=== PATIENT | female | born 1960 | race Caucasian/White ===

== ENCOUNTER → 2017-10-26 | Outpatient (CLI) | payer BC | END | disposition home or self-care (01) | LOC: MAMMO 10:48 | DX: Z12.31 Encounter for screening mammogram for malignant neoplasm of breast (principal) | CPT/HCPCS: 77067 ==

== ENCOUNTER → 2018-05-18 | Outpatient (CLI) | payer SELFPAY ==
[2016-01-13 10:00] VITALS: BP 132/77
[~2018-05-18] MED LIST: DULO30CA43 PO; MELO7.5T29 PO; METO-239 PO; OMEP40CA2 PO; ZOLP5TAB PO
--- NOTE | 2018-05-18 12:18 | KCIC ---
Coronary artery calcium score dated May 18, 2018. No comparison available. Clinical Indication: Calcium screening. Hypertension. Family history of myocardial infarction. New diagnosis of hyperlipidemia. Technical factors: High resolution, computed tomography of the heart was performed with ECG gating and suspended respiration. No contrast material was administered. Post processing was performed on the 3-D computer workstation using diastolic phase images to measure the amount of coronary vascular calcium. Scoring was performed using the Agatston Method. PQRS compliance Statement One or more of the following individualized dose reduction techniques were utilized for this study: 1. Automated exposure control 2. Adjustment of the mA and/or kV according to patient size 3. Use of iterative reconstruction technique Results: Thorax: There is a small 2 mm subpleural lung nodule within the lateral aspect of the right upper lobe and smaller 1 mm lung nodule seen within the posterior lateral periphery of the posterior segment right upper lobe. These nodules are seen on images 1 and 2 series 5 respectively. No other significant abnormality is identified in the lungs or mediastinum. Note that this CT exam is limited to the heart and adjacent structures. Coronary arteries: Left main coronary artery: 0. Left anterior descending coronary artery: 161.2 Left circumflex coronary artery: 3.8. Right coronary artery: 53.8. Total coronary artery calcium score: 218.7. Conclusions: 1. Coronary atherosclerosis is present, moderate amount. 2. Intermediate risk of cardiovascular event. 3. Small peripheral right upper lobe lung nodules. If the patient is at high risk for malignancy, then a follow-up noncontrast chest CT in 12 months is recommended as per Fleischner guidelines. Electronically signed by: Denny Villalta MD (05/18/2018 12:15 PM) [facility]
== END | disposition home or self-care (01) ==
LOC: KCIC CT 10:48
DX: Z13.6 Encounter for screening for cardiovascular disorders (principal); I25.10 Atherosclerotic heart disease of native coronary artery without angina pectoris; I10 Essential (primary) hypertension; E78.5 Hyperlipidemia, unspecified; E87.6 Hypokalemia; R91.8 Other nonspecific abnormal finding of lung field; Z86.2 Personal history of diseases of the blood and blood-forming organs and certain disorders involving the immune mechanism; Z87.891 Personal history of nicotine dependence; Z85.038 Personal history of other malignant neoplasm of large intestine; Z90.710 Acquired absence of both cervix and uterus; Z82.49 Family history of ischemic heart disease and other diseases of the circulatory system
CPT/HCPCS: 75571

== ENCOUNTER → 2018-06-22 | Outpatient (CLI) | payer BC ==
[2016-01-13 10:00] VITALS: BP 132/77
[~2018-06-22] MED LIST changes: +REGADENOSON 0.4 MG/5 ML DISP.SYRIN. IV ONE
--- NOTE | 2018-06-22 11:09 | RAD ---
MR#: [id number] Date of Study: 06/22/2018 Ordering Physician: LATA SRIVASTAVA, Referring Physician: NAHEED KOHLI Tech: RT Champ (R) (N) APPROVED REPORT Test Type: Pharmacological Stress Nurse/Tech: Jane Cantu R.N. Test Indications: chest tightness, fatigue Cardiac History: Family history, Hypertension Medications: See Electronic Medical Record Medical History: See Electronic Medical Record Resting ECG: NSR Resting Heart Rate: 75 bpm Resting Blood Pressure: 108/66mmHg Pretest Chest Pain: Atypical angina Nurse/Tech Notes S1S2, lungs sound clear. states she has a pressure in middle of chest in low sternam area, not radia tion into either arm. States it has been a constant feeling rated at 4 Consent: The procedure was explained to the patient in lay terms. Informed consent was witnessed. Eyal eout was entered into [employer]. History and Stress Test performed by Jane Cantu R.N. Pharm. Details Pharmacologic stress testing was performed using 0.4mg per 5ml of regadenoson given intravenously ove r 7-10 seconds. Stress Symptoms cramping in abd. POST EXERCISE Reason for Termination: Infusion complete Target HR: 137 Max HR: 109 bpm Max Blood Pressure: 113/62mmHg Blood Pressure response to exercise: Normal blood pressure response during stress. Chest Pain: Yes. no change in pain after injection Arrhythmia: No. ST Change: No. INTERPRETATION Stress EKG Conclusion: Baseline EKG showed sinus rhythm. No ischemic changes at peak stress. No arr hythmias. Imaging Protocol IMAGE PROTOCOL: Rest Tc-99m/stress Tc-99m 1 day Rest: Stress: Viability: Radiopharm.Tc99m KgrfigsfoHf51a Sestamibi Ofjl34fPc 33mCi Duration 13min. 13min. Img Date 06/22/2018 06/22/2018 Inj-Img [id number]. 60min. Rest Admin Site:IV - Left AntecubitalAdministrator:RT Sarah Oakes)(N) Stress Admin Site: IV - Left AntecubitalAdministrator: Dylan Bowers, RT (R)(N) STRESS DATA End Diast. Vol.73.0mlLVEDV index BSA39.0ml End Syst. Vol.15.0mlLVESV index BSA8.0ml Myocardial Xmvp260.0gEject. Jjsyyivs76.0% Stress Scores Regional WT0.00Summed WT0.00 Regional WM0.00Summed WM0.00 Study quality was good. Left Ventricular size was Normal at Rest and Stress. Lung uptake was . Left Ventricular ejection fraction is 79%. The rest and stress images show normal perfusion, normal contraction and thickening. LV Perf. Quant 17 Seg. SSS0.00 17 Seg. SRS0.00 17 Seg. SDS0.00 Stress Defect Extent (% LAD)0.00Rest Defect Extent (% LAD)0.00Rev. Defect Extent (% LAD)0.00 Stress Defect Extent (% LCX) 0.00Rest Defect Extent (% LCX)0.00Rev. Defect Extent (% LCX)0.00 Stress Defect Extent (% RCA)0.00Rest Defect Extent (% RCA)0.00Rev. Defect Extent (% RCA)0.00 Stress Defect Extent (% ABEL)0.00Rest Defect Extent (% ABEL)0.00Rev. Defect Extent (% ABEL)0.00 Conclusion 1. Regadenoson cardioisotope stress test did not show any evidence of ischemia or infarct. 2. Normal left ventricular systolic function with ejection fraction calculated at 79%. 3. Low risk for cardiac events. Signed by : Braulio Fonseca, Electronically Approved : 06/22/2018 11:08:16
== END | disposition home or self-care (01) ==
LOC: NM 07:53
PROVIDERS: ATTEND Internal Medicine Cardiovascular Disease
DX: R07.89 Other chest pain (principal); R53.83 Other fatigue; I10 Essential (primary) hypertension; E78.5 Hyperlipidemia, unspecified; I25.10 Atherosclerotic heart disease of native coronary artery without angina pectoris; Z87.891 Personal history of nicotine dependence; Z85.038 Personal history of other malignant neoplasm of large intestine; Z86.2 Personal history of diseases of the blood and blood-forming organs and certain disorders involving the immune mechanism; Z90.710 Acquired absence of both cervix and uterus; Z82.49 Family history of ischemic heart disease and other diseases of the circulatory system
CPT/HCPCS: 78452; 93017; 96374; 96375; 96376; A9500; J2785

== ENCOUNTER → 2018-11-25 | Outpatient (CLI) | payer BC ==
[2016-01-13 10:00] VITALS: BP 132/77
[~2018-11-25] MED LIST changes: -REGADENOSON 0.4 MG/5 ML DISP.SYRIN. IV ONE
--- NOTE | 2018-11-25 11:49 | RAD ---
DATE: November 25, 2018 EXAM: MAMMO JALYN SCREENING BILATERAL HISTORY: Screening study. COMPARISON: 2014 and 2017. 2-D digital mammographic views of both breasts were performed in the CC and MLO projections. 3-D digital tomosynthesis images of both breasts were performed in the CC and MLO projections and reviewed on a computer workstation. This study was interpreted with the benefit of Computerized Aided Detection (CAD). FINDINGS: Breast Density: HETERO The breast parenchyma is heterogenously dense, which could reduce sensitivity of mammography. Breast parenchyma level C.. There are no dominant suspicious masses, suspicious microcalcifications or evidence of architectural distortion. IMPRESSION: No mammographic indicators for malignancy. BI-RADS CATEGORY: 1 NEGATIVE RECOMMENDED FOLLOW-UP: 12M 12 MONTH FOLLOW-UP PQRS compliance statement: Patient information was entered into a reminder system with a target due date November 26, 2019 for the next mammogram. Mammography is a sensitive method for finding small breast cancers, but it does not detect them all and is not a substitute for careful clinical examination. A negative mammogram does not negate a clinically suspicious finding and should not result in delay in biopsying a clinically suspicious abnormality. "Our facility is accredited by the [employer] Mammography Program." The patient's breast density may affect the ability of mammography to detect breast cancer. There are 4 categories of breast density, A, B, C and D. Breast density A means that most of the breast tissue is replaced with adipose tissue and therefore is not dense. Breast density B means that the breast tissue is mildly dense and scattered. Breast density C means that the breast tissue is heterogeneously dense. Breast density D means that the breast tissue is very dense. Breast densities especially C and D may decrease the sensitivity of mammography to detect breast cancer. Therefore, the patient may benefit from 3-D breast mammography (3D breast tomography) as a part of their screening mammogram. Insurance may or may not pay for this additional imaging. The patient's breast density based on today's mammogram is category C.
== END | disposition home or self-care (01) ==
LOC: MAMMO 10:41
DX: Z12.31 Encounter for screening mammogram for malignant neoplasm of breast (principal)
CPT/HCPCS: 77063; 77067

== ENCOUNTER → 2021-05-14 | Outpatient (CLI) | payer BC ==
[2016-01-13 10:00] VITALS: BP 132/77
[~2021-05-14] MED LIST changes: -DULO30CA43 PO; +DULO30CA44 PO; +REGADENOSON 0.4 MG/5 ML DISP.SYRIN. IV ONE
--- NOTE | 2021-05-14 18:23 | RAD ---
MR#: [id number] Date of Study: 05/14/2021 Ordering Physician: KENNETH RENO, Referring Physician: NAHEED COTTON Tech: SIGRID Meraz ARRT (R) (N) APPROVED REPORT Test Type: Pharmacological Stress Nurse/Tech: RYANN LARA Test Indications: CHEST PAIN Cardiac History: HTN, CP- SEE EMR Medications: SEE EMR Medical History: SEE EMR Resting ECG: SR Resting Heart Rate: 74 bpm Resting Blood Pressure: 119/68mmHg Pretest Chest Pain: No chest pain Nurse/Tech Notes S1,S2, VSS, PT IS WEARING A ZIO MONITOR, LUNGS CTA, DENIED CP OR SOA. Consent: The procedure was explained to the patient in lay terms. Informed consent was witnessed. Eyal eout was entered into [employer]. History and Stress Test performed by RT Champ (R) (N) Pharm. Details Pharmacologic stress testing was performed using 0.4mg per 5ml of regadenoson given intravenously ove r 7-10 seconds. Stress Symptoms PT HAD SLIGHT SHORTNESS OF BREATH, RESOLVED AFTER A COUPLE MINUTES, VSS, DENIED CHEST PAIN. POST EXERCISE Reason for Termination: Infusion complete Max HR: 108 bpm Max Blood Pressure: 110/58mmHg Blood Pressure response to exercise: Normal blood pressure response during stress. Heart Rate response to exercise: WNL Chest Pain: No. Arrhythmia: No. NO SIGNIFICANT CHANGES FROM BASELINE EKG ST Change: No. INTERPRETATION Stress EKG Conclusion: The resting EKG is a sinus rhythm with nonspecific ST-T wave changes. The stress EKG showed no significant changes from baseline. No EKG evidence of stress-induced ischemia. Imaging Protocol IMAGE PROTOCOL: Rest Tc-99m/stress Tc-99m 1 day Rest: Stress: Viability: Radiopharm.Tc99m UckxnyhrjQl50h Sestamibi Dose9.5mCi 31.8mCi Rest Admin Site:IV - Right AntecubitalAdministrator:SIGRID Meraz ARRT (R)(N) Stress Admin Site: IV - Right AntecubitalAdministrator: Dylan Bowers, RT (R)(N) STRESS DATA End Diast. Vol.65.0mlAv. Heart Rate91.0bpm End Syst. Vol.3.0mlCO Index BSA0.0L/min Myocardial Wbei729.0gEject. Eryqwgpk68.0% Stress Rates Pk. Fill Rate3.68EDV/secLVtime Pk. Fill 98.26msec Pk. Empty Rate6.60ESV/secLVtime Pk. Czorj158.95msec 09/30 Pk. Fill2.44EDV/sec Stress Scores Regional WT0.00Summed WT0.00 Regional WM0.00Summed WM0.00 LV Perfusion The stress scans showed no significant defects. The rest scans showed no significant defects. Nuclear imaging shows no reversible ischemia or infarct. Wall Motion Left ventricular systolic function is normal with no regional wall motion abnormalities and an ejecti on fraction of greater than 70%. LV Perf. Quant 17 Seg. SSS0.00 17 Seg. SRS0.00 17 Seg. SDS0.00 Stress Defect Extent (% LAD)0.00Rest Defect Extent (% LAD)0.00Rev. Defect Extent (% LAD)0.00 Stress Defect Extent (% LCX) 0.00Rest Defect Extent (% LCX)0.00Rev. Defect Extent (% LCX)0.00 Stress Defect Extent (% RCA)0.00Rest Defect Extent (% RCA)0.00Rev. Defect Extent (% RCA)0.00 Stress Defect Extent (% ABEL)0.00Rest Defect Extent (% ABEL)0.00Rev. Defect Extent (% ABEL)0.00 Conclusion 1. No EKG evidence of stress-induced ischemia. 2. Nuclear imaging shows no reversible ischemia or infarct. 3. Normal left ventricular systolic function with an ejection fraction of greater than 70%. 4. Low risk Lexiscan nuclear stress test. Signed by : Kenneth Reno MD Electronically Approved : 05/14/2021 18:23:01
== END ==
LOC: NM 13:25
PROVIDERS: ATTEND Internal Medicine Cardiovascular Disease
DX: R07.9 Chest pain, unspecified (principal); I10 Essential (primary) hypertension
CPT/HCPCS: 78452; 93017; A9500; J2785